=== PATIENT | female | born 1950 | race Caucasian/White ===

== ENCOUNTER 2018-09-30 16:27 | Emergency (ER) | payer OTHER ==
[~2018-09-30] VITALS: Ht 175.3 cm; Wt 97.5 kg
[2018-09-30] MEDS ORDERED: CEFADROXIL500 MG PO (18:17)
== END 2018-09-30 18:30 | disposition home or self-care (01) ==
LOC: ER 16:27
DX: L50.8 Other urticaria (principal); R60.0 Localized edema; M79.651 Pain in right thigh

== ENCOUNTER → 2018-11-06 | Outpatient (CLI) | payer OTHER ==
[~2018-11-06] MED LIST: CEFADROXIL500 MG PO
== END | disposition home or self-care (01) ==
LOC: NUCLEAR 11:09
DX: M81.0 Age-related osteoporosis without current pathological fracture (principal)

== ENCOUNTER 2019-12-04 11:53 | Outpatient (CLI) | payer OTHER | END 2019-12-04 11:55 | disposition home or self-care (01) | LOC: SONOGRAMA 11:53 | DX: N84.0 Polyp of corpus uteri (principal) ==